=== PATIENT | female | born 1965 | race Caucasian/White ===

== ENCOUNTER 2017-10-19 23:01 | Emergency (ER) | payer MEDICAID ==
--- NOTE | 2017-10-20 00:01 | ED Physician Chart ---
ED Chief Complaint/HPI - Patient Information Date Seen:: 10/19/17 Time Seen:: 23:58 Chief Complaint:: Neck pain, shoulder pain History of Present Illness:: 52 yo female had neck pain with left upper extremity numbness and pain for 2 months worsening this evening with headache. Patient drank 12pk beer today. Allergies:: Allergies Allergy/AdvReac Type Severity Reaction Status Date / Time acetaminophen [From Vicodin] Allergy Verified 10/19/17 23:38 hydrocodone [From Vicodin] Allergy Verified 10/19/17 23:38 Vitals:: Vital Signs - 8 hr 10/19/17 23:20 Temp 97.9 F HR 84 RR 16 BP 118/77 O2 Sat % 97 ED Review of Systems - Review of Systems General/Constitutional: No fever, No chills Skin: No rash Head: Headache Eyes: No pain ENT: No nasal drainage Neck: Neck pain Cardio Vascular: No chest pain Pulmonary: No SOB GI: No nausea, No vomiting Musculoskeletal: Bone or joint pain Neurological: No syncope, No seizure ED Past Medical History - Past Medical History Past Medical History: HTN, CVA/TIA Social History: Smoker, Alcohol, No Drug Use Family Medical History - Family Member Mother History Unknown: Yes ED Physical Exam - Physical Examination General/Constitutional: Awake, Alert Head: Atraumatic Eyes: PERRL Skin: No skin lesions ENMT: Nasal exam nl Other Neck comments:: Tenderness posterior neck along the c spine Respiratory: No Wheeze/Rhonchi/Rales Cardio Vascular: RRR, No murmur, gallop, rubs, NL S1 S2 GI: No tenderness/rebounding/guarding Other Extremities comments:: Left hand ulnar side numbness ED Labs/Radiology/EKG Results - Radiology Results Results: C-spine X ray: normal ED Assessment - Assessment General Assessment: Cervicalgia Cervical radiculopathy Alcohol intoxication Hyponatremia Assessment/Comments:: CBC, CMP ETOH level C-spine X ray Toradol 15mg IM NS 1L IV bolus D/c home F/u PCP for further evaluation and management of chronic neck pain ED Septic Shock - . Is Septic Shock (SBP<90, OR Lactate>4 mmol\L) present?: No - <6hrs of presentation: Vital Signs: Vital Signs - 8 hr 10/19/17 23:20 Temp 97.9 F HR 84 RR 16 BP 118/77 O2 Sat % 97 ED Reassessment (Disposition) - Reassessment Reassessment Condition:: Improved - Patient Disposition Discharge/Transfer:: Home
[2017-10-20 01:04] LABS: RED CELL DISTRIBUTION WIDTH 13.3 % (11.5-20.0)
[2017-10-20 01:20] LABS: ALB/GLOB RATIO 1.6 (1.0-1.8); ALBUMIN 4.3 gm/dL (3.7-5.3); ALKALINE PHOSPHATASE 74 U/L (34-104); ANION GAP 12.2 (7.0-16.0); BILIRUBIN,TOTAL 0.3 mg/dL (0.3-1.0); BUN - UREA NITROGEN 9 mg/dL (7-25); CALCIUM SERUM 9.5 mg/dL (8.6-10.3); CARBON DIOXIDE 25.3 mEq/L (21.0-31.0); CHLORIDE 101 mEq/L (98-107); CREATININE - SERUM 0.4 mg/dL (0.6-1.2); GFR AFRICAN-AMERICAN > 60.0 ml/min (>90); GFR NON AFRICAN-AMERICAN > 60.0 ml/min; GLUCOSE 121 mg/dL (70-105); POTASSIUM SERUM 3.5 mEq/L (3.5-5.1); SGOT 40 U/L (13-39); SGPT/ALT 27 U/L (7-52); SODIUM SERUM 135 mEq/L (136-145)
[2017-10-20 01:25] LABS: HEMATOCRIT 32.5 % (41.0-60); HEMOGLOBIN 11.4 gm/dL (12-16); MEAN CELL VOLUME 96.4 fl (81-100); MEAN CORPUSCULAR HEMOGLOBIN 33.8 pg (27.0-31.0); MEAN CORPUSCULAR HGB CONC 35.1 pg (28.0-36.0); MEAN PLATELET VOLUME 7.2 fl; PLATELET COUNT 285 Th/cmm (150-400); RED BLOOD COUNT 3.37 Mil/cmm (3.80-5.10); WHITE BLOOD COUNT 6.3 Th/cmm (4.8-10.8)
[2017-10-20] MEDS ORDERED: Sodium Chloride 0.9% 1,000 ML IV ONE (01:29)
[2017-10-20 02:12] LABS: BAND NEUTROPHILE 1 % (0-10); LYMPHOCYTE 47 % (20-50); NEUTROPHILS 49 % (40-80)
[2017-10-20 02:13] LABS: EOSINOPHIL 2 % (0-5); MONOCYTE 1 % (2-10); PLATELET ESTIMATE ADEQUATE (NORMAL)
--- NOTE | 2017-10-20 09:12 | Diagnostic Imaging Report ---
Exam: Cervical spine. HISTORY: Pain Findings: Multiple views of cervical spine reviewed. The study demonstrates no evidence of fracture or dislocation. The vertebral bodies of normal height with preserved intervertebral disc spaces. The posterior elements are intact. The pedicles are normal. The odontoid process is not well visualized. There is no evidence of prevertebral soft tissue swelling. IMPRESSION: Normal examination of cervical spine.
== END 2017-10-20 03:05 | disposition home or self-care (01) ==
LOC: ER 23:01
DX: M54.12 Radiculopathy, cervical region (principal); E87.1 Hypo-osmolality and hyponatremia; F10.129 Alcohol abuse with intoxication, unspecified; R51 Headache; R20.0 Anesthesia of skin; I10 Essential (primary) hypertension; F17.200 Nicotine dependence, unspecified, uncomplicated; Z88.5 Allergy status to narcotic agent; Z86.73 Personal history of transient ischemic attack (TIA), and cerebral infarction without residual deficits
CPT/HCPCS: 99285; 96372; 36415; 85007; 85025; 80320; 81025; 80053; 93005; 72050; J1885; J7030; Z7502